=== PATIENT | male | born 1955 | race Two or more races ===

== ENCOUNTER 2023-10-07 10:13 | Emergency (ER) | payer MEDICAID, OTHER ==
[~2023-10-07] VITALS: Ht 172.7 cm; Wt 75.0 kg
[2023-10-07 10:15] VITALS: TEMP 98.2
[2023-10-07] MEDS ORDERED: htn PO (10:19)
[2023-10-07] MEDS ORDERED: KETOROLAC TROMETHAMINE 60 MG/2 ML VIAL IM ONE (13:15)
[2023-10-07] MEDS ORDERED: METHOCARBAMOL 500 MG TABLET PO ONE (13:15)
[2023-10-07] MEDS ORDERED: METH-659 PO (13:23)
[2023-10-07] MEDS ORDERED: IBUP-1492 PO (13:23)
[2023-10-07 13:40] VITALS: BP 160/82; PULSE 68; RESP 14
== END 2023-10-07 13:53 | disposition home or self-care (01) ==
LOC: EMS 10:18
DX: M54.31 Sciatica, right side (principal); I10 Essential (primary) hypertension
CPT/HCPCS: 99283; 96372; J1885

== ENCOUNTER 2024-07-02 18:19 | Emergency (ER) | payer MEDICARE, OTHER ==
[~2024-07-02] VITALS: Ht 172.7 cm; Wt 86.4 kg
[~2024-07-02 18:19] MED LIST: IBUP-1492 PO; METH-659 PO; htn PO
[2024-07-02 18:42] VITALS: TEMP 98
[2024-07-02] MEDS ORDERED: ACET-2080 PO (19:07)
[2024-07-02 19:10] VITALS: BP 169/80; PULSE 62; RESP 16; O2SAT 98
[2024-07-02] MEDS: ACETAMINOPHEN/CODEINE 300-30 MG TABLET PO ONE (19:12)
[2024-07-02] MEDS: PERTUSS(ACELL),DIPH,TET/PF 0.5 ML SYRINGE [ADULT] IM. ONE (19:12)
[2024-07-02] MEDS: ERYTHROMYCIN 0.5% 3.5 GM TUBE OPHTHALMIC OINTMENT OD ONE (19:12)
[2024-07-02] MEDS: BACITRACIN 0.9 GM PACKET OINTMENT TP ONE (19:12)
== END 2024-07-02 19:51 | disposition home or self-care (01) ==
LOC: EMS 18:24
DX: S05.01XA Injury of conjunctiva and corneal abrasion without foreign body, right eye, initial encounter (principal); H11.31 Conjunctival hemorrhage, right eye; I10 Essential (primary) hypertension; W22.8XXA Striking against or struck by other objects, initial encounter; Y93.89 Activity, other specified; Y92.89 Other specified places as the place of occurrence of the external cause; Y99.8 Other external cause status
CPT/HCPCS: 90471; 90715; 99284

== ENCOUNTER 2024-08-24 20:57 | Emergency (ER) | payer MEDICARE, OTHER ==
[~2024-08-24] VITALS: Ht 160 cm; Wt 84.1 kg
[~2024-08-24 20:57] MED LIST changes: +ACET-2080 PO; -IBUP-1492 PO; -METH-659 PO
[2024-08-24 21:27] LABS: COVID AG,FIA SOURCE NASAL SWAB
[2024-08-24 21:51] LABS: SARS-COV2 (COVID) ANTIGEN,FIA Negative (Negative)
[2024-08-24 21:52] LABS: INFLUENZA TYPE A NEGATIVE FOR TYPE A (NEGATIVE); INFLUENZA TYPE B NEGATIVE FOR TYPE B (NEGATIVE)
[2024-08-24 22:44] VITALS: BP 133/73; PULSE 67; RESP 20; TEMP 98.6; O2SAT 99
[2024-08-24] MEDS ORDERED: BENZONATATE 100 MG CAPSULE PO ONE (23:45)
[2024-08-24] MEDS ORDERED: IBUPROFEN 600 MG TABLET PO ONE (23:45)
[2024-08-24] MEDS ORDERED: BENZ-227 PO (23:59)
[2024-08-24] MEDS ORDERED: ACET-3385 PO (23:59)
[2024-08-24] MEDS ORDERED: IBUP-1492 PO (23:59)
== END 2024-08-25 01:02 | disposition home or self-care (01) ==
LOC: EMS 20:57
DX: B34.9 Viral infection, unspecified (principal); I10 Essential (primary) hypertension; Z20.822 Contact with and (suspected) exposure to COVID-19
CPT/HCPCS: 87430; 87804; 99283